=== PATIENT | female | born 1950 | race Caucasian/White ===

== ENCOUNTER 2022-10-02 14:06 | Emergency (ER) | payer MEDICARE, BC, SELFPAY ==
[2022-10-02 14:40] VITALS: BP 116/74; PULSE 96; RESP 18; TEMP 36.4; O2SAT 94; BMI 33.7
--- NOTE | 2022-10-02 14:49 | CRLHL7_ITS ---
For Patients: As a result of the Century Cures Act, medical imaging exams and procedure reports are released immediately into your electronic medical record. You may view this report before your referring provider. If you have questions, please contact your health care provider. INDICATION: Swelling and pain COMPARISON: None available TECHNIQUE: A duplex venous ultrasound exam was performed of the left lower extremity using de guzman scale imaging, color Doppler and spectral Doppler analysis. Pre- and post compression images were obtained per site specific protocol. FINDINGS: Sonographic imaging of the left lower extremity demonstrates normal compressibility and color Doppler venous blood flow within the common femoral vein, proximal deep femoral vein, and the proximal greater saphenous vein. Within the thigh the femoral vein is patent and compressible. At a lower level the popliteal, posterior tibial and visualized peroneal veins also show normal compressibility and color Doppler venous blood flow. Limited imaging of the contralateral groin demonstrates a normal spectral waveform and color Doppler venous blood flow within the right common femoral vein. IMPRESSION: No evidence of deep vein thrombosis within the left lower extremity. Dictated by Rosemary Hull MD @ 10/02/2022 4:53:52 PM (Electronically Signed)
--- NOTE | 2022-10-02 15:41 | ED_ITS ---
HPI - General Adult General Time Seen by Provider: 15:41 Date Seen: 10/02/22 Chief complaint: Lower Extremity Swelling Stated complaint: Swelling, pain in L leg Time Seen by Provider: 10/02/22 15:41 Source: patient and RN notes reviewed Mode of arrival: ambulatory Limitations: no limitations History of Present Illness HPI narrative: Vandana is a very pleasant 72-year-old female with complicated past medical history including atrial fibrillation, currently on anticoagulation, right arm lymphedema who comes to the emergency room with complaints of left calf pain. P caitlyn notes that she had been in the doctor's office last week and while she was sitting she felt a pinch her painful sensation in the back of her knee. She move forward and did not think too much about it but she has had increasing calf pain since that time. Yesterday she noticed the onset of swelling in her lower extremity. She did not think she had redness but her daughter thought the leg l ooked a bit red. Vandana has not had any cough cold congestion or fever. She has not had any difficulty breathing. She notes that certain movements increase her pain such as pointing her toe down. She is able to bear weight. She cannot think of any other trauma. Patient denies any skipped doses of her anticoagulation. Related Data Previous Rx's Medication Instructions Recorded cephalexin 500 mg capsule 500 mg PO TID #20 caps 10/02/22 Allergies Allergy/AdvReac Type Severity Reaction Status Date / Time No Known Drug Allergies Allergy Verified 10/02/22 14:39 Review of Systems Status of ROS: Reports: 6 or more systems reviewed and unremarkable except as noted in History and below Const: Denies: fever or chills Eyes: Denies: change in vision Cardio: Denies: chest pain or shortness of breath with exertion Resp: Denies: shortness of breath GI: Denies: nausea PFSH PFSH Social History Smoking Status: Never smoker Do you use any of these nicotine containing products: None How often do you have a drink containing alcohol: never AUDIT-C Alcohol total score: 0 Non-prescribed substance use: denies use Exam Narrative: Exam Narrative: Alert and oriented. No acute distress. No respiratory distress. Large edematous right arm-chronic. Left lower extremity shows obvious difference in size with left calf being larger. Tenderness noted in the mid aspect of the gastrocnemius. No tenderness at the Achilles insertion. No tenderness in the popliteal fossa. Patient has some very subtle erythema along the left lateral aspect of the lower extremity extending up on the left lateral anterior aspect. It is slightly warm to the touch. No crepitus or weeping at this time. Distally sensation and motor is intact and there is no swelling of the toes. Const: Vital Signs, click to edit/add: Vital Signs - 24 hr 10/02/22 14:40 Temperature 97.5 F L Pulse Rate [Pulse Oximeter] 96 Respiratory Rate 18 Blood Pressure [Le ft Upper Arm] 116/74 Pulse Oximetry 94 Oxygen Delivery Me thod Room Air Documenting provider has reviewed patient's vital signs: yes Course Course Hospital Course: Before I had seen patient she had undergone a lower extremity Doppler which was negative for DVT. Vital Signs Vital signs: Initial Vital Signs Temperature 97.5 F L 10/02/22 14:40 Temperature Source Temporal Artery Scan 10/02/22 14:40 Pulse Rate 96 10/02/22 14:40 Respiratory Rate 18 10/02/22 14:40 Blood Pressure 116/74 10/02/22 14:40 Blood Pressure Mean 88 10/02/22 14:40 Blood Pressure Position Sitting 10/02/22 14:40 Pulse Oximetry 94 10/02/22 14:40 Oxygen Delivery Method Room Air 10/02/22 14:40 Vital Signs Temperature 97.5 F L 10/02/22 14:40 Pulse Rate 96 10/02/22 14:40 Respiratory Rate 18 10/02/22 14:40 Blood Pressure 116/74 10/02/22 14:40 Pulse Oximetry 94 10/02/22 14:40 Oxygen Delivery Method Room Air 10/02/22 14:40 Temperature 97.5 F L 10/02/22 14:40 Pulse Rate 96 10/02/22 14:40 Respiratory Rate 18 10/02/22 14:40 Blood Pressure 116/74 10/02/22 14:40 Pulse Oximetry 94 10/02/22 14:40 Oxygen Delivery Method Room Air 10/02/22 14:40 Medical Decision Making MDM Narrative Medical decision making narrative: 1. Early cellulitis-other possibilities do include plantaris rupture but patient does not give story of pushing off type injury. She has tenderness to the calf but no evidence of DVT. I do suggest antibiotic Keflex as treatment for early cellulitis. Did give her the option to wait 24 hours. I do not think we need to do any blood work because even with normal values I would suggest treatment. She agrees to this. Keflex 500 mg p.o. t.i.d. x7 days. Patient will try to elevate leg as much as possible. She is to return to the ER for fever, worsening redness, increasing redness and as needed. Initially my goal had been to put this in [employer] but we do not have it available. Therefore she will be given her 1st dose of Keflex now, 1 tablet to be taken at home tonight and the remainder of her prescription sent to her pharmacy. 2. Disposition-home at this time. Return as needed for worsening symptoms. Medical Records Medical records reviewed: Yes I reviewed the patient's medical records Imaging Data Venous US: Attestation: I have reviewed the pertinent imaging results. Radiologist's impression: Sonographic imaging of the left lower extremity demonstrates normal compressibility and color Doppler venous blood flow within the common femoral vein, proximal deep femoral vein, and the proximal greater saphenous vein. Within the thigh the femoral vein is patent and compressible. At a lower level the popliteal, posterior tibial and visualized peroneal veins also show normal compressibility and color Doppler venous blood flow. Limited imaging of the contralateral groin demonstrates a normal spectral waveform and color Doppler venous blood flow within the right common femoral vein. IMPRESSION: No evidence of deep vein thrombosis within the left lower extremity. Discharge Plan Discharge Clinical Impression: Cellulitis Qualifiers: Site of cellulitis: extremity Site of cellulitis of extremity: lower extremity Laterality: left Qualified Code(s): L03.116 - Cellulitis of left lower limb Patient Disposition: Home, Self-Care Condition: Unchanged Additional Instructions: Start Keflex for presumed cellulitis tonight. We did not have this particular medication in our vending machine. Therefore we will give you your 1st dose now and send home 1 extra tablet that you will take this evening before bedtime. The remainder of your prescription was sent to your pharmacy for pickup tomorrow. Monitor for worsening symptoms. Return to the ER for fever, vomiting, increased swelling or redness. Recommend elevation of leg as much as possible. Prescriptions: New cephalexin 500 mg capsule 500 mg PO TID Qty: 20 0RF Stand Alone Forms: [facility] Info Instructions
[2022-10-02] MEDS: cephALEXin 500 MG CAPSULE PO (16:24)
== END 2022-10-02 16:46 | disposition home or self-care (01) ==
PROVIDERS: Emergency Provider Family Medicine; PCP Internal Medicine
DX: L03.116 Cellulitis of left lower limb (principal)
CPT/HCPCS: 93971; 99283; 99284; A9270

== ENCOUNTER 2023-10-30 20:59 | Outpatient (CLI) | payer MEDICARE, BC, SELFPAY | END 2023-10-30 21:00 | disposition home or self-care (01) | LOC: SLEEP 21:03 | PROVIDERS: PCP Internal Medicine; Visit Provider Internal Medicine | DX: G47.33 Obstructive sleep apnea (adult) (pediatric) (principal) | CPT/HCPCS: 95811 ==